=== PATIENT | male | born 1965 | race Caucasian/White ===

== ENCOUNTER 2017-06-21 05:47 | Emergency (ER) | payer OTHER ==
[~2017-06-21] VITALS: Ht 193 cm; Wt 97.3 kg
[2017-06-21 05:49] VITALS: BP 110/73; PULSE 68; TEMP 36.4; O2SAT 97; Ht 193 cm; Wt 97.3 kg
[2017-06-21] MEDS ORDERED: PROPARACAINE HCL 0.5% OP SOLN 15 ML BTL ONE (06:05)
[2017-06-21] MEDS ORDERED: CIPROFLOXACIN HCL 0.3% OP SOLN 2.5 ML BTL OP ONE (06:15)
--- NOTE | 2017-06-22 22:25 | EMERGENCY ROOM VISIT NOTE ---
ED Visit Note First contact with patient: 05:54 CHIEF COMPLAINT: Red, irritated eye HISTORY OF PRESENT ILLNESS: This 52-year-old male presents to the emergency department complaining of redness in the left eye which has gradually increased over the past several hours. The patient states that about a month ago he had a piece of dirt in the eye, but those symptoms resolved. He does have a foreign body sensation tonight. Mild constant pain, dull in nature, which is rated as 6/10. There is watery and mucoid discharge from the left eye and the lids are crusted in the morning. No difficulty with vision. The patient does not wear contacts. No headache, rash, nausea or vomiting. REVIEW OF SYSTEMS: A 6 system review of systems was completed with positives and pertinent negatives in the HPI. ALLERGIES: No known allergies MEDICATIONS: No chronic medications PMH: Otherwise healthy SOCIAL HISTORY: Lives locally PHYSICAL EXAM: Vital Signs: Reviewed Nurse's notes GENERAL: White male, in no acute distress, well-developed, well-nurished. SKIN: Warm, dry. No cyanosis. No petechia. EYES: Both pupils are equal round and reactive to light and accomadation, EOMs intact. There is mucoid discharge in the left eye and moderate injection. There is no foreign body of the eyelid with lid eversion. Fundoscopic exam reveals no hemorrages, papiledema, or other abnormalities. No foreign body on the cornea, no hyphema. No uptake of flourescein visible with UV light. No corneal abrasion and no corneal ulcer. Visual Accuity is 20/40 right and 20/40 left without correction. EMERGENCY DEPARTMENT COURSE: I examined the patient. A slit lamp exam was performed and is as described above. Two drops of Ciloxin were put in the left eye and the patient was instructed as noted below. The patient was discharged home in good condition. Current/Historical Medications No Active Prescriptions or Reported Meds Allergies Coded Allergies: No Known Allergies (Unverified , 06/21/17) Vital Signs Date Time Temp Pulse Resp B/P (MAP) Pulse Ox O2 Delivery O2 Flow Rate FiO2 06/21/17 05:49 36.4 68 16 110/73 97 Room Air Medications Administered Medications (Trade) Dose Ordered Sig/[place] Route Start Time Stop Time Status Last Admin Dose Admin Ciprofloxacin HCl (Ciprofloxacin 0.3% Op Soln) 2 drops NOW ONCE OP 06/21/17 06:15 06/21/17 06:16 DC 06/21/17 06:31 2 DROPS Departure Information Impression Primary Impression: Left conjunctivitis Dispostion Home / Self-Care Condition GOOD Prescriptions No Active Prescriptions or Reported Meds Forms HOME CARE DOCUMENTATION FORM, IMPORTANT VISIT INFORMATION Patient Instructions My [facility] Additional Instructions You were seen and evaluated today on an emergency basis only. This is not a substitute for, or an effort to provide, complete comprehensive medical care. It is not possible to recognize and treat all injuries or illnesses in a single emergency department visit. For this reason it is recommended that you followup with your primary care physician or eye doctor in the next 1-2 days for recheck. Use Ciloxan Eye Drops: Instill 1-2 drops into the conjunctival sac every 2 hours while awake for 2 days and 1-2 drops every 4 hours while awake for the next 5 days You are welcome to return to the emergency department anytime with new, worsening, or concerning symptoms.
== END 2017-06-21 06:32 | disposition home or self-care (01) ==
LOC: C.EDB 05:49
DX: H10.9 Unspecified conjunctivitis (principal)